=== PATIENT | female | born 1955 | race Caucasian/White ===

== ENCOUNTER 2020-09-16 07:51 | Emergency (ER) | payer OTHER, MEDICARE ==
[~2020-09-16] VITALS: Ht 162.6 cm; Wt 59.5 kg
[~2020-09-16 07:51] MED LIST: ESTRADIOL0.5 MG PO; HYDROXYCHLOROQ200 MG PO; LEVOTHYROXINE75 MCG PO; LOSARTAN POTASS25 MG PO; MAALOX MAXIMUM355 ML PO; OMEPRAZOLE20 MG PO
[2020-09-16] MEDS ORDERED: ASPIRIN81 MG PO (08:13)
== END 2020-09-16 09:02 | disposition home or self-care (01) ==
LOC: ED 07:51
DX: S29.012A Strain of muscle and tendon of back wall of thorax, initial encounter (principal); X50.1XXA Overexertion from prolonged static or awkward postures, initial encounter; I10 Essential (primary) hypertension; Z87.891 Personal history of nicotine dependence; Z88.8 Allergy status to other drugs, medicaments and biological substances; Z88.2 Allergy status to sulfonamides; Z79.899 Other long term (current) drug therapy; Z79.82 Long term (current) use of aspirin
CPT/HCPCS: 99283